=== PATIENT | female | born 1985 | race African-American/Black ===

== ENCOUNTER 2020-09-13 21:45 | Inpatient (IN) ==
[2020-09-13] MEDS ORDERED: ceFAZolin 2,000 MG in PREMIX 1 EACH IV ONE (22:00)
[2020-09-13] MEDS ORDERED: LACTATED RINGERS 1,000 ML IV SCH ×2 (22:00→23:45)
[2020-09-13] MEDS ORDERED: CITRIC ACID/SODIUM CITRATE 30 ML UDCUP PO ONE (22:00)
[2020-09-13 22:12] LABS: Basophils % 0.3 % (0.0-0.8); Eosinophils # 0.2 10*3/uL (0.0-0.87); Eosinophils % 1.6 % (0.00-10.9); Hematocrit 26.9 VOL% (35.7-47.0); Hemoglobin 7.8 GM/DL (12.0-16.0); Immature Granulocytes % 2.5 %; Immature Granulocytes Absolute 0.35 #; Lymphocytes # 1.7 10*3/uL (1.4-4.0); Lymphocytes % 12.2 % (21.3-54.2); Mean Corpuscular Volume 73.1 FL (87-102); Mean Platelet Volume 10.4 FL (9.6-12.0); Monocytes % 5.9 % (1.7-12.7); Neutrophils % 77.5 % (38.7-73.9); Platelet Count 261 T/CUMM (130-400); Red Blood Count 3.68 MC/CUMM (3.8-5.5); Red Cell Distribution Width 18.4 % (9.3-17.3); White Blood Count 14.1 T/CUMM (4-12)
[2020-09-13] MEDS ORDERED: FAMOTIDINE 20 MG/2 ML VIAL IV ONE (22:22)
[2020-09-13 22:31] LABS: Albumin 2.8 G/DL (3.4-5.0); Bilirubin,Total 0.5 MG/DL (0.2-1.0); Calcium 8.5 MG/DL (8.5-10.1); Osmolality,Calculated 272.2 MOS/KG (273-304); Potassium 3.7 MMOL/L (3.5-5.1); Total Protein 6.7 G/DL (6.4-8.2)
[2020-09-13] MEDS ORDERED: SODIUM CHLORIDE 0.9% 1,000 ML IV PRN ×2 (22:50→22:51)
[2020-09-13] MEDS ORDERED: OXYTOCIN 10 UNIT/ML VIAL ONE (22:59)
[2020-09-13] MEDS ORDERED: LIDOCAINE 2% 5 ML VIAL ONE (22:59)
[2020-09-13] MEDS ORDERED: OXYTOCIN/LR 20 UNIT/1,000 ML BAG IV ONE ×2 (23:00→23:59)
[2020-09-13] MEDS ORDERED: ONDANSETRON 4 MG/2 ML VIAL ONE (23:20)
[2020-09-13] MEDS ORDERED: PHENYLEPHRINE 1 MG/10 ML SYRINGE IV ONE (23:20)
[2020-09-13] MEDS ORDERED: OXYTOCIN 10 UNIT/ML VIAL IM ONE (23:21)
[2020-09-13 23:28] LABS: Cord Arterial Blood HCO3 19.1 MMOL/L
[2020-09-13 23:31] LABS: Cord Venous Blood HCO3 20.8 MMOL/L; Cord Venous Blood PCO2 48.3 MMHG; Cord Venous Blood PO2 25.2
[2020-09-13] MEDS ORDERED: IBUPROFEN 800 MG TABLET PO PRN (23:59)
[2020-09-13] MEDS ORDERED: RHO(D) IMMUNE GLOBULIN 300 MCG SYRINGE IM ONE (23:59)
[2020-09-13] MEDS ORDERED: ONDANSETRON 4 MG/2 ML VIAL IV PRN (23:59)
[2020-09-13] MEDS ORDERED: ACETAMINOPHEN 325 MG TABLET PO PRN (23:59)
[2020-09-14] MEDS: KETOROLAC 30 MG/1 ML VIAL IV SCH ×2 (01:01→08:23)
[2020-09-14 01:02] LABS: Bacteria,Urine Occasional /HPF (Few); Bilirubin,Urine Negative (Negative); Blood, Urine Small mg/dL (Negative); Glucose,Urine (UA) 50 mg/dL (Negative); Ketones,Urine Negative (Negative); Nitrite,Urine Negative (Negative); Protein,Urine Negative; RBC,Urine 9 /HPF (0-4); Renal Epithelial Cells,Urine Occasional /HPF (<1); Squamous Epithelial Cell,Urine Occasional /HPF (0-10); Transitional Epi Cells,Urine Occasional /HPF (<1); Urine Appearance CLEAR (Clear); Urine Color Yellow (Yellow); Urine Specific Gravity 1.014 (1.001-1.035); Urine Urobilinogen < 2.0 EU/DL (0.2-1.0); WBC,Urine 2 /HPF (0-6)
[2020-09-14] MEDS: ACETAMINOPHEN 500 MG TABLET PO SCH ×2 (01:02→08:23)
[2020-09-14] MEDS ORDERED: diphenhydrAMINE 50 MG/1 ML VIAL ONE (01:03)
[2020-09-14] MEDS ORDERED: diphenhydrAMINE 50 MG/1 ML VIAL IV ONE ×2 (01:04→05:55)
[2020-09-14 01:24] LABS: Barbiturates Screen,Urine Negative (Negative); Benzodiazepines Screen,Urine Negative (Negative); Cannabinoid Screen,Urine Positive (Negative); Opiate Screen,Urine Negative (Negative); Phencyclidine Screen,Urine Negative (Negative)
[2020-09-14 09:12] LABS: Hematocrit 29.8 VOL% (35.7-47.0); Hemoglobin 9.1 GM/DL (12.0-16.0)
[2020-09-14] MEDS: FERROUS SULFATE 325 MG TABLET PO SCH ×2 (09:47→20:27)
[2020-09-14] MEDS: MAGNESIUM HYDROXIDE SUSP 30 ML UDCUP PO PRN ×2 (09:47→20:27)
[2020-09-14] MEDS: DOCUSATE SODIUM 100 MG CAPSULE PO SCH ×2 (09:47→20:27)
[2020-09-14] MEDS: MULTIVITAMIN (PRENATAL) TABLET PO SCH (09:47)
[2020-09-14] MEDS: METOCLOPRAMIDE 10 MG TABLET PO SCH ×2 (15:44→23:56)
[2020-09-14] MEDS ORDERED: RHO(D) IMMUNE GLOBULIN 300 MCG SYRINGE IM ONE (16:24)
[2020-09-14] MEDS: SIMETHICONE CHEW 80 MG TABLET PO PRN (20:27)
[2020-09-14] MEDS ORDERED: HydrOXYzine PAMOATE 25 MG CAPSULE PO PRN (21:44)
[2020-09-15] MEDS ORDERED: MAGNESIUM CITRATE 300 ML BOTTLE PO ONE (00:08)
[2020-09-15] MEDS: SIMETHICONE CHEW 80 MG TABLET PO PRN (06:55)
[2020-09-15] MEDS: MAGNESIUM HYDROXIDE SUSP 30 ML UDCUP PO PRN (06:55)
[2020-09-15] MEDS: IBUPROFEN 800 MG TABLET PO PRN ×2 (07:00→12:57)
[2020-09-15] MEDS: DOCUSATE SODIUM 100 MG CAPSULE PO SCH ×2 (09:36→20:51)
[2020-09-15] MEDS: FERROUS SULFATE 325 MG TABLET PO SCH ×2 (09:36→20:50)
[2020-09-15] MEDS: METOCLOPRAMIDE 10 MG TABLET PO SCH (09:36)
[2020-09-15] MEDS: MULTIVITAMIN (PRENATAL) TABLET PO SCH (09:36)
[2020-09-15] MEDS: diphenhydrAMINE CAP 25 MG CAPSULE PO PRN ×2 (13:49→22:13)
[2020-09-15] MEDS: BISACODYL 10 MG SUPP RECTAL PRN (13:49)
[2020-09-16] MEDS: IBUPROFEN 800 MG TABLET PO PRN ×2 (03:45→12:24)
[2020-09-16 07:39] VITALS: BP 104/81
[2020-09-16] MEDS: FERROUS SULFATE 325 MG TABLET PO SCH (08:32)
[2020-09-16] MEDS: MULTIVITAMIN (PRENATAL) TABLET PO SCH (08:32)
[2020-09-16] MEDS: DOCUSATE SODIUM 100 MG CAPSULE PO SCH (08:32)
[2020-09-16] MEDS: diphenhydrAMINE CAP 25 MG CAPSULE PO PRN (08:36)
[2020-09-16] MEDS: SIMETHICONE CHEW 80 MG TABLET PO PRN (12:23)
[2020-09-16] MEDS: BISACODYL 10 MG SUPP RECTAL PRN (12:23)
== END 2020-09-16 17:30 | disposition home or self-care (01) | DRG 540 ==
LOC: N.LDOUT 21:45 → N.LD 21:47 → N.OB 09-14 08:28
PROVIDERS: ADMIT Obstetrics & Gynecology; ATTEND Obstetrics & Gynecology